=== PATIENT | female | born 1975 | race Caucasian/White ===

== ENCOUNTER 2020-11-10 11:58 | Emergency (ER) | payer OTHER, BC ==
--- NOTE | 2020-11-10 12:30 | EDM.PDOC ---
ED HPI GENERAL MEDICAL PROBLEM - General Chief Complaint: Lower Extremity Injury/Pain Stated Complaint: LEFT KNEE INJURY Time Seen by Provider: 11/10/20 12:00 Source of Information: Reports: Patient History Limitations: Reports: No Limitations - History of Present Illness INITIAL COMMENTS - FREE TEXT/NARRATIVE: HISTORY AND PHYSICAL: History of present illness: Patient is a 45-year-old female who presents to the emergency room with complaints of left knee pain post fall. She states on 11/03/2020 she had fallen on both knees on concrete. She was evaluated the following day by her primary care provider who stated she had a lot of swelling and fluid, although had no fractures. She is scheduled as an outpatient for an MRI in 2 to 3 weeks. She states she was scheduled sooner but they had a miscommunication and was canceled. She is tearful stating she feels like something is wrong with the left knee as she has increased bruising and pain with weightbearing and movement . She states she did talk to someone in MRI today, they told her if she came to the emergency room they would be able to fit her in. Patient denies any fever, chills, headache, change in vision, syncope or near syncope. Denies any chest pain, back pain, shortness of breath or cough. Denies any abdominal pain, nausea, vomiting, diarrhea, constipation or dysuria. Has not noted any blood in urine or stool. Patient has been eating and drinking appropriately. Review of systems: As per history of present illness and below otherwise all systems reviewed and negative. Past medical history: As per history of present illness and as reviewed below otherwise noncontributory. Surgical history: As per history of present illness and as reviewed below otherwise noncontributory. Social history: See social history for further information Family history: As per history of present illness and as reviewed below otherwise noncontributory. Physical exam: General: Well developed and well nourished. Alert and orientated x 3. Nontoxic in appearance and in no acute distress. Vital signs are stable and have been reviewed by me. Nursing notes were reviewed. HEENT: Atraumatic, normocephalic, pupils equal and reactive bilaterally, negative for conjunctival pallor or scleral icterus, mucous membranes moist, TMs normal bilaterally, throat clear, neck supple, nontender, trachea midline. No drooling or trismus noted. No meningeal signs. No hot potato voice noted. Lungs: Clear to auscultation bilaterally. No wheezes, rales, or rhonchi. Chest nontender. Normal work of breathing, no accessory muscles used. Heart: S1S2, regular rate and rhythm without overt murmur, gallops, or rubs. No JVD. No peripheral edema Abdomen: Soft, nondistended, nontender. Normoactive bowel sounds. Negative for masses or costovertebral tenderness. Skin: Extensive healing bruising noted to the left lower extremity from mid thigh to mid calf soft tissue swelling. Minimal bruising to the anterior right knee. Remaining skin is intact, warm, dry. No lesions or rashes noted. Hematologic: No petechiae or purpra. Mucosa appropriate color and normal nail bed color and refill. Extremities: She moves all extremities per self without difficulty or deficits, negative for cords or calf pain. She does have healing bruising from mid thigh to mid calf with soft tissue swelling. Pain with palpation of the knee. Nega tive drawer test. No knee instability is noted. Strong pedal pulses bilaterally. Neurovascular unremarkable. Neuro: Awake, alert, oriented. Cranial nerves II through XII unremarkable. Cerebellum unremarkable. Motor and sensory unremarkable throughout. Exam nonfocal. Psychiatric: Mood and affect are appropriate. Normal thought process. Answering questions appropriately. Notes: *This patient was seen and evaluated during the 2019 SARS-CoV-2 novel coronavirus pandemic period. Community viral transmission is ongoing at time of this encounter and the emergency department is operating under pandemic response procedures. MRI shows appearance favoring thin but moderately broad subcutaneous contusion/hematoma of the prepatellar knee. Surrounding edema. No internal derangement of menisci or ligaments. 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 Degenerative chondromalacia most evident in the lateral facet of the patella. I have talked with the patient about today's findings, in addition to providing specific details for plan of care. Fitted for crutches. Will give her short course of Tramadol for pain, until she can follow up with orthopedics/[facility]. Reassessment at the time of disposition demonstrates that the patient is in no acute distress. The patient is stable for discharge, counseling was provided and we discussed in great detail signs and symptoms that would prompt them to return to the Emergency Department. Medication, follow up and supportive care measures were reviewed and discussed. Voices understanding and is agreeable to plan of care. Denies any further questions or concerns at this time. Diagnostics: MRI left lower extremity Therapeutics: Crutches Prescription: Tramadol Impression: Knee contusion, left Plan: 1. You were evaluated today on an emergent basis. Your MRI does not shows any internal derangement of menisci or ligaments. Rest, ice and elevate. 2. You can alternate Tylenol and ibuprofen as needed for pain and fever management. 3. We encourage you to follow up with your primary care provider and/or Orthopedics in the next few days for re-evaluation and further care/management. 4. If your symptoms should worsen, new symptoms develop or any of the signs and symptoms we discussed should arise please return to the emergency room or call 911 (if needed). Definitive disposition and diagnosis as appropriate pending reevaluation and review of above. left knee Pain Score (Numeric/FACES): 4 - Related Data Allergies Allergy/AdvReac Type Severity Reaction Status Date / Time No Known Allergies Allergy Verified 09/11/18 13:13 Home Meds: Home Meds traMADol [Ultram] 50 mg PO Q4H PRN #20 tab 11/10/20 [Rx] Review of Systems - Review of Systems Review Of Systems: Comprehensive ROS is negative, except as noted in HPI. ED EXAM, GENERAL - Physical Exam Exam: See Below (See dictation) Course - Vital Signs Last Recorded V/S: Last Vital Signs Temp 97.1 F 11/10/20 12:36 Pulse 75 11/10/20 12:36 Resp BP 130/89 11/10/20 12:36 Pulse Ox 100 11/10/20 12:36 - Orders/Labs/Meds Orders: Active Orders 24 hr Category Date Time Status DME for Discharge [COMM] Stat Oth 11/10/20 13:33 Ordered Departure - Departure Time of Disposition: 13:49 Disposition: Home, Self-Care 01 Clinical Impression: Knee contusion Qualifiers: Encounter type: subsequent encounter Laterality: left Qualified Code(s): S80.02XD - Contusion of left knee, subsequent encounter - Discharge Information Prescriptions: traMADol [Ultram] 50 mg PO Q4H PRN #20 tab PRN Reason: Pain Instructions: Contusion, [id number] Referrals: Laura Benavidez DO [Primary Care Provider] - Forms: ED Department Discharge Additional Instructions: The following information is given to patients seen in the emergency department who are being discharged to home. This information is to outline your options for follow-up care. We provide all patients seen in our emergency department with a follow-up referral. The need for follow-up, as well as the timing and circumstances, are variable depending upon the specifics of your emergency department visit. If you don't have a primary care physician on staff, we will provide you with a referral. We always advise you to contact your personal physician following an emergency department visit to inform them of the circumstance of the visit and for follow-up with them and/or the need for any referrals to a consulting specialist. The emergency department will also refer you to a specialist when appropriate. This referral assures that you have the opportunity for follow-up care with a specialist. All of these measure are taken in an effort to provide you with optimal care, which includes your follow-up. Under all circumstances we always encourage you to contact your private physician who remains a resource for coordinating your care. When calling for follow-up care, please make the office aware that this follow-up is from your recent emergency room visit. If for any reason you are refused follow-up, please contact the [facility] Emergency Department at and asked to speak to the emergency department charge nurse. [facility] [address] [place] [id number] [address] [phone] Thank you for choosing the [facility] department in [place] for your medical needs today. It was a pleasure caring for you. Today you were seen in the emergency department for knee injury. 1. You were evaluated today on an emergent basis. Your MRI does not shows any internal derangement of menisci or ligaments. Rest, ice and elevate. 2. You can alternate Tylenol and ibuprofen as needed for pain and fever management. 3. We encourage you to follow up with your primary care provider and/or Orthopedics in the next few days for re-evaluation and further care/management. 4. If your symptoms should worsen, new symptoms develop or any of the signs and symptoms we discussed should arise please return to the emergency room or call 911 (if needed). Sepsis Event Note (ED) - Focused Exam Vital Signs: Vital Signs Temp Pulse BP Pulse Ox 11/10/20 12:36 97.1 F 75 130/89 100 - My Orders Last 24 Hours: My Active Orders 11/10/20 13:33 DME for Discharge [COMM] Stat - Assessment/Plan Last 24 Hours: My Active Orders 11/10/20 13:33 DME for Discharge [COMM] Stat
--- NOTE | 2020-11-10 13:40 | MR ---
INDICATION: Injury. Swelling. Fall. COMPARISON: None provided. TECHNIQUE: Axial T1 and PD fat-sat, sagittal PD and T2 fat-sat and coronal PD and PD fat-sat sequences left knee. FINDINGS: Medial compartment: Meniscus: Intact. Articular cartilage: Small area concave minor shallow grade 2 thinning in the central weightbearing medial condyle. MCL: Intact. - Cruciate ligaments: ACL: Intact. PCL: Intact. - Lateral compartment: Meniscus: Intact. Articular cartilage: Minor uniform grade 2 thinning throughout the weightbearing condyle. Lateral collateral complex: Intact. - Patellofemoral compartment: Heterogeneous signal and some grade 2 to irregular grade 3 thinning in the lateral facet of the patella. Small focus of subchondral edema near the top of the median ridge. Trochlear cartilage appears uniform. - Extensor mechanism: Distal quadriceps tendon and patellar tendon are intact with anatomic patellar alignment. - Bones and soft tissues: Thin broad lentiform fluid collection measuring roughly 7.5 cm across in the subcutaneous adipose superficial to the patella and retinacula. Surrounding edema. Fluid is intermediate T1. Physiologic fluid in the knee joint. Small to moderate size popliteal Carmona`s cyst. No bone lesion or fracture. IMPRESSION: 1. Appearance favoring thin but moderately broad subcutaneous contusion/hematoma of the prepatellar knee. Surrounding edema. 2. No internal derangement of menisci or ligaments. 3. Carmona`s cyst. 4. Minor degenerative chondromalacia all 3 compartments. Degenerative chondromalacia most evident in the lateral facet of the patella. Dictated by Frank Reis MD @ 11/10/2020 1:38:[address] Frank Reis @ Nov 10 2020 1:38PM
== END 2020-11-10 14:10 | disposition home or self-care (01) ==
LOC: MW.ED 11:58
DX: S80.02XA Contusion of left knee, initial encounter (principal); W19.XXXA Unspecified fall, initial encounter
CPT/HCPCS: 73721-26-LT; 73721-LT; 99283; 99283-25